=== PATIENT | female | born 1995 | race Caucasian/White ===

== ENCOUNTER 2018-06-02 11:30 | Outpatient (CLI) | payer OTHER ==
[2018-06-02] MEDS ORDERED: PRENATAL TABLE1 EACH PO (11:43)
== END 2018-06-02 18:00 | disposition still patient (30) ==
LOC: OBS/DEL 11:30
DX: O26.893 Other specified pregnancy related conditions, third trimester (principal); R10.2 Pelvic and perineal pain; Z34.03 Encounter for supervision of normal first pregnancy, third trimester